=== PATIENT | female | born 1990 | race Caucasian/White ===

== ENCOUNTER 2024-07-14 20:14 | Outpatient (CLI) | payer BC, SELFPAY | END 2024-07-14 20:15 | disposition home or self-care (01) | LOC: SLEEP 20:16 | PROVIDERS: PCP Internal Medicine; Visit Provider Otolaryngology | DX: G47.10 Hypersomnia, unspecified (principal) | CPT/HCPCS: 95805; 95810 ==

== ENCOUNTER 2024-12-17 10:29 | Outpatient (CLI) | payer BC, SELFPAY | END 2024-12-17 10:30 | disposition home or self-care (01) | LOC: NFLDREF 12-31 01:41 | PROVIDERS: PCP Internal Medicine; Referring Provider Internal Medicine; Visit Provider Internal Medicine | DX: R10.31 Right lower quadrant pain (principal) | CPT/HCPCS: 87086 ==

== ENCOUNTER 2024-12-24 07:00 | Outpatient (CLI) | payer BC, SELFPAY ==
--- NOTE | 2024-12-24 07:15 | CRLHL7_ITS ---
For Patients: As a result of the Century Cures Act, medical imaging exams and procedure reports are released immediately into your electronic medical record. You may view this report before your referring provider. If you have questions, please contact your health care provider. CLINICAL HISTORY: Right Flank/RLQ Pain COMPARISON: none TECHNIQUE: Donaldson scale and color Doppler images were acquired of the kidneys and urinary bladder. FINDINGS: Sonographic images reveal a symmetric appearance of the kidneys. There is no evidence of hydronephrosis, mass or calculus. The right kidney measures 11.4cm in length and the left kidney measures 9.3cm in length. The renal cortex appears of normal thickness. The urinary bladder appears normal. Color Doppler images reveal a normal appearance of both ureteral jets. There is no evidence of bladder calculi or diverticula. Prevoid bladder volume 520 cc. Postvoid bladder volume 20 cc. Artifact noted in the dependent bladder. IMPRESSION: Normal renal ultrasound. Dictated by Jono Martinez MD @ 12/24/2024 2:28:18 PM (Electronically Signed)
== END 2024-12-24 07:01 | disposition home or self-care (01) ==
LOC: US 07:01
PROVIDERS: PCP Internal Medicine; Visit Provider Internal Medicine
DX: R10.31 Right lower quadrant pain (principal)
CPT/HCPCS: 76770

== ENCOUNTER 2025-01-07 09:57 | Outpatient (CLI) | payer BC, SELFPAY ==
[2025-01-07 15:15] LABS: Chlamydia DNA Amplified* NOT DETECTED (No Detected); GC DNA Amplified* NOT DETECTED (No Detected)
== END 2025-01-07 09:58 | disposition home or self-care (01) ==
LOC: NFLDREF 09:57
PROVIDERS: PCP Internal Medicine; Visit Provider Physician Assistant
DX: R10.31 Right lower quadrant pain (principal)
CPT/HCPCS: 87491; 87591

== ENCOUNTER 2025-01-13 07:07 | Outpatient (CLI) | payer BC, SELFPAY ==
--- NOTE | 2025-01-13 07:15 | CRLHL7_ITS ---
For Patients: As a result of the Century Cures Act, medical imaging exams and procedure reports are released immediately into your electronic medical record. You may view this report before your referring provider. If you have questions, please contact your health care provider. CLINICAL HISTORY: RLQ pain COMPARISON: 12/24/2024 TECHNIQUE: 2D eisenberg-scale ultrasound. In addition, color Doppler and spectral Doppler analysis was performed of the pelvis using a transabdominal and transvaginal approach. Transvaginal imaging performed to better visualize the endometrial stripe and ovaries. FINDINGS: The uterus measures 6.9 x 2.7 x 4.3 cm. The endometrial lining appears normal and measures 2 mm in thickness. The left ovary measures 3.1 x 2.1 x 2.4 cm in size and the right ovary measures 2.9 x 1.2 x 1.5 cm. The ovaries demonstrate normal arterial and venous blood flow on color Doppler and spectral Doppler analysis. There are no suspicious fluid collections within the cul-de-sac. Dominant follicle left ovary measures 1.3 cm. IMPRESSION: No evidence of ovarian torsion. No excess pelvic free fluid or fibroid. Dictated by Jono Martinez MD @ 01/13/2025 8:58:53 AM (Electronically Signed)
== END 2025-01-13 07:08 | disposition home or self-care (01) ==
PROVIDERS: PCP Internal Medicine; Visit Provider Physician Assistant
DX: R10.31 Right lower quadrant pain (principal)
CPT/HCPCS: 76830; 76856; 93976

== ENCOUNTER 2025-01-21 10:53 | Outpatient (CLI) | payer BC, SELFPAY | END 2025-01-21 10:54 | disposition home or self-care (01) | LOC: NFLDREF 10:54 | PROVIDERS: PCP Internal Medicine; Visit Provider Obstetrics & Gynecology | DX: R10.31 Right lower quadrant pain (principal) | CPT/HCPCS: 80053 ==

== ENCOUNTER 2025-02-03 08:39 | Day surgery (SDC) | payer BC, SELFPAY ==
[2025-02-03] VITALS (15 sets, daily range): BP systolic 118–145; BP diastolic 70–93; PULSE 49–77; RESP 12–16; TEMP 36.7–37.3; O2SAT 93–100; BMI 36.6
[2025-02-03 09:01] LABS: Ur HCG Qualitative* Negative (Negative)
[2025-02-03] MEDS: LACTATED RINGERS 1000 ML 1,000 ML 100 ML IV (09:20)
[2025-02-03] MEDS: SODIUM CHLORIDE 0.9 % (FLUSH) 10 ML SYRINGE IVF (09:20)
[2025-02-03 09:31] LABS: Hemoglobin* 12.4 gm/dL (12.0-16.0)
[2025-02-03 09:54] LABS: Creatinine* 0.8 mg/dL (0.5-1.5); Est. Creatinine Clearance* 100.90; Estimated Glomerular Filt Rate 100 ml/min
--- NOTE | 2025-02-03 10:46 | PM.GSCN ---
History of Present Illness Consult details Date Seen: 02/03/25 Consult date: 02/03/25 Narrative: Patient is undergoing a diagnostic laparoscopy for chronic abdominal pain. I was asked to see the patient for intraoperative evaluation of her appendix. I was able to talk with the patient in pre induction. She reports that since October she has had right-sided abdominal pain. The pain is always 3/10 in the lower quadrant, but will then intermittently spike. She denies any association with foods. She has had her gallbladder removed. Initially it was thought that she had a bladder infection or possible kidney infection. She has had multiple CT scans, ultrasounds and 5 courses of antibiotics with no improvement. She saw Dr. iKm in clinic who recommended a diagnostic laparoscopy to evaluate for endometriosis. Patient has had no other abdominal surgeries other than removal of her gallbladder. Her mother did have evidence of chronic appendicitis with removal of her appendix in the past. Review of Systems Status of ROS: Reports: 10 or more systems reviewed and unremarkable except as noted in History and below [facility] Medical History History of abnormal cervical Pap smear ?Z87.42 - Personal history of other diseases of the female genital tract (ICD-10) Surgical History History of laparoscopic cholecystectomy (11/18/18) ?Z90.49 - Acquired absence of other specified parts of digestive tract (ICD-10) History of colposcopy ?Z98.890 - Other specified postprocedural states (ICD-10) Family History Maternal Grandmother Alzheimers disease Parkinsonism Sister Anxiety Maternal Grandfather Arthritis Heart disease Pacemaker Paternal Grandfather Arthritis Diabetes Mother Breast cancer, Onset Age: 37 High blood pressure Thyroid cancer Non Hodgkin's lymphoma, Onset Age: 16 Father Gout High blood pressure Paternal Grandmother Skin cancer Social History What is your current living situation?: declined to answer Problems where you live: declined to answer In the past 12 months, utilities in danger of being shut off: declined to answer In past 12 months, lack of transportation kept you from medical appts, meetings, work, or getting things needed for daily living: declined to answer In the past 12 mos, have been you worried that your food would run out before you had money to buy more?: declined to answer In the past 12 mos, the food you bought just didn't last and you didn't have money to buy more?: declined to answer Smoking Status: Never smoker Do you use any of these nicotine containing products: None How often do you have a drink containing alcohol: monthly or less Alcohol type: beer and hard liquor How many standard drinks containing alcohol do you have on a typical day: 1 or 2 How often do you have six or more drinks on one occasion: Never AUDIT-C Alcohol total score: 1 Non-prescribed substance use: marijuana (any form) Non-prescribed substance use details: CBD for sleep as needed Caffeine: Yes How often does anyone, including family, friends and others, physically hurt you: decline to answer How often does anyone, including family, friends and others, insult or talk down to you: decline to answer How often does anyone, including family, friends and others, threaten you with harm: decline to answer How often does anyone, including family, friends and others, scream or curse at you: decline to answer Are you using contraception or practicing any form of control: No Health Related Social Needs: unsheltered homelessness (Z59.02) Meds Home Medications and Allergies Home Medications ?Medication ?Instructions ?Recorded ?Confirmed ?Type ascorbic acid (vitamin C) 1,000 mg 1 g PO QDAY 06/09/24 02/03/25 History tablet cholecalciferol (vitamin D3) 25 25 mcg PO QDAY 06/09/24 02/03/25 History mcg (1,000 unit) capsule clindamycin phosphate 1 % lotion topical 06/09/24 02/01/25 History collagen (bovine) 100 % topical 1 applic topical Q24H 06/09/24 02/03/25 History powder etonogestrel 68 mg subdermal 1 implant subdermal ONCE 06/09/24 02/01/25 History implant (Nexplanon) magnesium carbonate powder 2 tbsp PO .prn PRN 06/09/24 02/03/25 History multivitamin 1 tab PO QAM 06/09/24 02/03/25 History omega 1-vio-flw-fish oil 1,000 mg 1 cap PO QDAY 06/09/24 02/03/25 History (120 mg-180 mg) capsule (Fish Oil) vitamin B complex 1 tab PO QDAY 06/09/24 02/03/25 History modafinil 200 mg tablet 400 mg (2 x 200 mg) PO QAM #180 10/29/24 02/03/25 Rx tabs spironolactone 50 mg tablet mg PO 10/29/24 02/01/25 History erythromycin with ethanol 2 % topical BID 02/01/25 02/01/25 History topical gel Allergies Allergy/AdvReac Type Severity Reaction Status Date / Time Penicillins AdvReac Unknown Vomiting Verified 02/03/25 09:01 Exam Narrative: Exam Narrative: General: Alert and oriented, no acute distress Respiratory: Equal breath rise bilaterally, maintained on room air CV: Well perfused Abdomen: Soft, tender to palpation right lower quadrant, no guarding or rebound. Const: Vital Signs, click to edit/add: Vital Signs - 24 hr 02/03/25 09:07 Temperature 99.1 F Pulse Rate 70 Respiratory Rate 16 Blood Pressure 133/82 Pulse Oximetry 100 Oxygen Delivery Me thod Room Air Results Labs Labs: Diabetes panel 02/03/25 Range/Units 09:22 Creatinine 0.8 (0.5-1.5) mg/dL Pituitary panel 02/03/25 Range/Units 09:22 Creatinine 0.8 (0.5-1.5) mg/dL Adrenal panel 02/03/25 Range/Units 09:22 Creatinine 0.8 (0.5-1.5) mg/dL All other labs normal. Imaging Abdomen CT scan report/results: report reviewed (Outside records from CT scan on 12/13/2024. Visualize normal appendix. No focal very enteric or pericolonic stranding.) Progress Note:A&P Assessment and plan (1) Right lower quadrant abdominal pain: Status: Acute Assessment and Plan: Patient is a 34-year-old female who was undergoing a diagnostic laparoscopy for chronic right lower quadrant abdominal pain. Working diagnosis is currently endometriosis, although given the location could represent chronic appendicitis. I did discuss with the patient that chronic appendicitis is a rare and controversial condition generally characterized by longstanding or recurrent inflammation of the appendix. Diagnosis is challenging and often made retrospectively on pathology. I also reviewed with the patient that appendectomy may not result in resolution of symptoms. Different treatment options were reviewed including continued observation versus appendectomy at the same time as Dr. Kim is performing her diagnostic laparoscopy. Risks and benefits of an appendectomy were reviewed at length with the patient. Risks included, but were not limited to: Bleeding, infection, risk of staple line breakdown, risk of damage to surrounding structures and possible need to convert to an open procedure. After answering all of the patient's questions and concerns she has elected to proceed with an appendectomy. Plan -OR for diagnostic laparoscopy by Dr. Kim and appendectomy by myself.
[2025-02-03] MEDS: PIPERACILLIN/TAZOBACTAM 3.375 GM INJ IVPB (11:12)
--- NOTE | 2025-02-03 11:19 | W.PM.H&PU ---
History & Physical Update History & Physical Update H&P Reviewed and patient assessed: The following changes are noted below H&P Updates: Patient states that for the past couple of days has noticed some discomfort in the left lower abdomen. Wonders if this could be associated with previously noted left ovarian cyst. Discussed that we would be able to evaluate during surgery and if needed proceed with cystectomy, again if needed. Patient in agreement with plan. Otherwise, no new changes.
[2025-02-03] MEDS: BUPIVACAINE 0.25% 30 ML INJECTION (11:28)
--- NOTE | 2025-02-03 11:33 | SUR.OPER ---
PATIENT QUESTIONS ANSWERED SATISFACTORILY PREOPERATIVELY. PATIENT BROUGHT TO OR #1 PER CART. Patient positioned supine on OR #1 bed FOR THE INTUBATION. PATIENT MOVED INTO THE LITHOTOMY POSITION FOR THE PROCEDURE. The perioperative team supported arms bilaterally on arm boards FOR THE INTUBATION. Perioperative team padded and tucked the arms at pt. side. Final approval of positioning by surgeon.
--- NOTE | 2025-02-03 11:53 | P.GSOP_ITS ---
Operative Note Date of procedure: 02/03/25 Pre-op diagnosis: Chronic right lower quadrant abdominal pain Post-op diagnosis: Same, normal appendix Type of Procedure: 1. Diagnostic laparoscopy 2. Laparoscopic appendectomy Indications: Patient is a 34-year-old female with chronic right lower quadrant abdominal pain. She was evaluated by Dr. Kim, who planned to do a diagnostic laparoscopy to evaluate for endometriosis. I was asked to see the patient in consultation to evaluate the appendix. Risks and benefits of operative interven tion were discussed at length with the patient. Risks included but was not limited to: Bleeding, infection, risk of damage to surrounding structures, possible need for additional procedures, possible need to convert to an open operation and postoperative complications such as pneumonia, pulmonary emboli or RI. All questions and concerns were addressed with the patient agreeing to proceed. Procedure Description: After discussing the risks and benefits of the procedure, the patient signed informed consent.? The operative site was marked and the patient was brought to the operating room and placed on the operating table in supine position.? Care was taken to pad the patient's pressure points.?? The patient was then intubated by anesthesia.??Patient was then repositioned in lithotomy position. The operative site was then prepped and draped in the usual sterile fashion.? A time-out was then performed. Entrance to the abdomen was obtained via a 5 mm optical trocar in the left upper quadrant. The abdomen was insufflated and briefly surveyed for any signs of injury. There were none. A 12 mm port was placed at the umbilicus as well as a 5 mm port in the left lower quadrant under direct vision. The patient was then placed in Trendelenburg position with the right side up. The small bowel was gently moved out of the way and the appendix was in view. The appendix was very normal in appearance, with no evidence of inflammation. The body was grasped and pulled into view. A mesenteric window was created between the base of the appendix and the mesoappendix. A 30 mm Endo-JACOBY purple load stapler was then used to transect the appendix at its base. A 60 mm vascular load stapler was then used to take the mesoappendix. The staple lines were inspected for bleeding. There was none. The appendix was then removed from the abdomen through the 12 mm port. The specimen was sent to pathology. At this point in the procedure Dr. Kim took over as primary surgeon, please see her operative note for further details. Findings: Normal appearing appendix Anesthesia: GETA Surgeon: Amy Moran MD Estimated blood loss (mL): 2 Specimen: Appendix Condition: stable Disposition: no change
[2025-02-03] MEDS: LACTATED RINGERS 1000 ML 1,000 ML 125 ML IV (12:19)
--- NOTE | 2025-02-03 13:04 | P.ANES_ITS ---
Anesthesia Charges Start Date/Time Anesthesia Start Date: 02/03/25 Anesthesia Start Time: 10:56 Stop Date/Time Anesthesia Stop Date: 02/03/25 Anesthesia Stop Time: 13:00 Coding CPT Codes CPT Codes: ANESTH SURG LOWER ABDOMEN - 87811 ([id number]) P2 - PATIENT W/MILD SYST DISEASE, QK - CELL LINER 2-4 CNCRNT ANES PROC
--- NOTE | 2025-02-03 13:04 | W.ANESCHARGE ---
Anesthesia Charges Start Date/Time Anesthesia Start Date: 02/03/25 Anesthesia Start Time: 10:56 Stop Date/Time Anesthesia Stop Date: 02/03/25 Anesthesia Stop Time: 13:00 Coding CPT Codes CPT Codes: ANESTH SURG LOWER ABDOMEN - 20843 ([id number]) P2 - PATIENT W/MILD SYST DISEASE, QK - FREIGHT LOADER 2-4 CNCRNT ANES PROC
--- NOTE | 2025-02-03 13:07 | W.PM.GYNPROC ---
Procedure Note Date of procedure: 02/03/25 Will [facility] bill your pro fee for this procedure?: Yes Pre-op diagnosis: Chronic pelvic pain Post-op diagnosis: Same, right ovarian cyst Procedure: Diagnostic laparoscopy, right cul de sac biopsy, right ovarian cystectomy Anesthesia: GETA Complications: None Surgeon: Kristal Diaz MD Estimated blood loss (mL): 20 IV fluids (mL): 1,100 Urine Output (mL): 50 Pathology: specimen obtained, sent to pathology (1. Right cul de sac biopsy 2. Right ovarian cyst) Condition: stable Disposition: same day Findings: Normal external genitalia, speculum exam grossly normal cervix, nulliparous. Intra abdominal survey: grossly normal intestines, liver and stomach. Grossly normal appendix. Uterus midline of about 6-7cm. Posterior fundal serosal lesion that looked like a small fibroid, of about 1cm in largest dimension. Grossly normal left fallopian tube and ovary. Right fallopian tube with a small 1cm paratubal cyst closely related to the fimbriae, in the mesosalpinx, no stalk-not removed. Right ovary of about 5cm with what looked like a hemorrhagic corpus luteum cyst of about 3cm. On the cul de sac mostly towards the right side, what looked like a small powder gun lesion noted. Otherwise, no additional suspicious lesions for endometriosis in the anterior cul de sac, right or left pelvic sidewalls, right of left ovarian fossae, right or left uterosacral ligaments. No pelvic adhesions. Procedure Description: Patient was taken to the OR with IV fluid running and pneumatic compression stockings applied to the lower extremities. General anesthesia was obtained without difficulty. The patient was placed in the dorsal lithotomy position with Yung type stirrups with knee bent at 30 degree angles. Patient was prepared and draped under usual sterile technique. Dr. Moran started procedure with initial placement of laparoscopy ports and completion of appendectomy. Please refer to this note for complete details. Dr. Moran debriefed with the team and I took over. A repeat Time Out was completed at this time and surgery proceeded as follows. The bladder was emptied and Galvez catheter placed. Speculum was placed in the vagina. The anterior lip of the cervix was grasped with a single-tooth tenaculum. Cervix was dilated with Hegar dilators to allow placement of uterine manipulator. Uterine manipulator was introduced. I then changed gloves and attention was again placed to the abdomen. I was able to utilize previously placed ports: 5mm one on the left upper abdominal quadrant, 12mm in the belly button and a 5mm in the left lower abdominal quadrant. The Trendelenburg position was obtained to facilitate pelvic exposure. Pelvic examination as above, pictures were also taken for documentation purposes. Suspicious lesion on the right cul de sac, was grasped with [place] grasper and this allowed tenting of peritoneal layer and with laparoscopic scissors lesion was removed. Hemostasis achieved with monopolar energy added to the [place] grasper. Hemostasis secured. Attention was then placed to the right ovarian cyst and with [place] grasper I was able to open cyst and remove cyst capsule with progressive traction and counter traction with grasper. Cyst was removed in pieces and sent to pathology-findings very consistent with a hemorrhagic corpus luteum cyst. A laparoscopic monopolar hook was then utilize to cauterize the base of cyst and achieve hemostasis. The pelvis was irrigated again, no concerning bleeding noted from resection sites. Pneumoperitoneum was also allowed to escape and no new bleeding was noted from resection sites. Hemostasis secured. Re evaluation of the appendectomy site revealed continued hemostasis. Trocars were then removed under direct visualization. The pneumoperitoneum was released, and correct instrument counts were confirmed. The umbilicus incision fascial layer was identified and grasped with 2 Unruly clamps, elevated and closed in a figure of 8 manner utilizing Vicryl 0 suture. Skin incisions were closed with 4-0 Monocryl sutures in a subcuticular fashion. All instruments were removed from the abdomen and vagina. The patient was taken to the recovery room in a stable condition. Patient will be discharged from recovery after all the criteria are met for discharge. She was given instructions regarding follow-up visit in 2 weeks at the [facility]. Postop pain management, lifting restrictions, intercourse restrictions were discussed with patient before surgery all questions were answered.
--- NOTE | 2025-02-03 13:11 | P.ANES_ITS ---
Anesthesia Charges Start Date/Time Anesthesia Start Date: 02/03/25 Anesthesia Start Time: 10:56 Stop Date/Time Anesthesia Stop Date: 02/03/25 Anesthesia Stop Time: 13:00 Coding CPT Codes CPT Codes: ANESTH SURG LOWER ABDOMEN - 20675 ([id number]) QK - BILLET WORKER 2-4 CNCRNT ANES PROC, QX - BUYER AGENT SVC W/ MD MED DIRECTION, P2 - PATIENT W/MILD SYST DISEASE
--- NOTE | 2025-02-03 13:11 | W.ANESCHARGE ---
Anesthesia Charges Start Date/Time Anesthesia Start Date: 02/03/25 Anesthesia Start Time: 10:56 Stop Date/Time Anesthesia Stop Date: 02/03/25 Anesthesia Stop Time: 13:00 Coding CPT Codes CPT Codes: ANESTH SURG LOWER ABDOMEN - 15139 ([id number]) QK - BUFFERER 2-4 CNCRNT ANES PROC, QX - CHILD SUPPORT SPECIALIST SVC W/ MD MED DIRECTION, P2 - PATIENT W/MILD SYST DISEASE
[2025-02-03] MEDS: ONDANSETRON 2 MG/ML inj 4 MG IVP (15:08)
== END 2025-02-03 15:10 | disposition home or self-care (01) ==
PROVIDERS: Surgery; PCP Internal Medicine; Visit Provider Obstetrics & Gynecology
PROC: (CPT 49320; principal; 2025-02-03 11:45)
PROC: 0DTJ4ZZ Resection of Appendix, Percutaneous Endoscopic Approach (ICD-10-PCS; CPT 44970; 2025-02-03 11:45)
DX: R10.20 Pelvic and perineal pain unspecified side (principal); R10.31 Right lower quadrant pain; G89.29 Other chronic pain; N83.291 Other ovarian cyst, right side
CPT/HCPCS: 44970; 58662; 49321; 00840; 36415; 81025; 82565; 85018; 86850; 86900; 86901; A9270; J0665; J1100; J1171; J1630; J1885; J2250; J2405; J2543; J2704; J2710; J3010; J7120